=== PATIENT | female | born 1955 | race Caucasian/White ===

== ENCOUNTER → 2020-02-19 11:27 | Outpatient (CLI) | payer OTHER, SELFPAY ==
--- NOTE | ~2020-02-19 | XR_ITS ---
XR chest 2V 02/19/2020 12:05 Indication: Shortness of breath. Intermittent cough. Procedure: 2 view chest Comparison: 04/06/2006 Findings: Heart size normal. No focal air space disease, pulmonary edema, pleural effusion or suspect ed pneumothorax. Calcified granuloma right apex. The lungs are hyperinflated which is consistent with , but not diagnostic of chronic obstructive pulmonary disease. There is a nodular density at the righ t apex. Impression: 1: Nodular density right apex. Follow-up CT chest recommended to exclude parenchymal nodule. Reviewed, dictated and finalized at location A. Impression: 1: Nodular density right apex. Follow-up CT chest recommended to exclude parenc hymal nodule.
== END ==
PROVIDERS: PCP Family Medicine; Visit Provider Family Medicine
DX: R06.02 Shortness of breath (principal); R91.8 Other nonspecific abnormal finding of lung field
CPT/HCPCS: 71046

== ENCOUNTER 2020-03-03 14:39 | Outpatient (CLI) | payer OTHER, SELFPAY ==
--- NOTE | ~2020-03-03 | MM_ITS ---
EXAMINATION: MM screening aamir BI w roslyn HISTORY: Screening TECHNIQUE: Craniocaudal and mediolateral oblique 3-D tomosynthesis images were obtained and synthetic 2-D images were generated. CAD analysis was submitted and interpreted. COMPARISON: Comparison to multiple prior studies sequentially, with oldest reviewed study dated 05/2013. BREAST PARENCHYMAL COMPOSITION: There are scattered areas of fibroglandular density. FINDINGS: There is no evidence of suspicious mass, calcification, or architectural distortion to sugg est malignancy in either breast. There has been no suspicious interval change. IMPRESSION: 1. No mammographic evidence of malignancy. 2. Recommend routine screening mammography in one year. BI-RADS Category 1: Negative Reviewed, dictated and finalized at location A.
== END 2020-03-03 14:40 | disposition home or self-care (01) ==
LOC: ANHIMG 14:41
PROVIDERS: PCP Family Medicine; Visit Provider Obstetrics & Gynecology
DX: Z12.31 Encounter for screening mammogram for malignant neoplasm of breast (principal)
CPT/HCPCS: 77063; 77067

== ENCOUNTER → 2020-03-05 15:54 | Outpatient (CLI) | payer OTHER, SELFPAY ==
--- NOTE | ~2020-03-05 | CT_ITS ---
EXAMINATION: CT chest wo con EXAM DATE: 03/05/2020 16:08 INDICATION: Solitary pulmonary nodule. Shortness of breath, cough. TECHNIQUE: Spiral CT of the chest without contrast. Axial, coronal and sagittal images were reviewe d. Coronal maximum intensity pixel images of chest reviewed. The dose-length product (DLP) for this examination was 141.86 mGy-cm. The exposure was tailored according to patient size (auto mA exposur e control), and iterative reconstruction (ASIR) was used as additional dose reduction technique. The re is no prior study for comparison. FINDINGS: Small left-sided Bochdalek hernia. Chest x-ray finding correlates to several right upper l obe opacities with calcification, granulomas, postinfectious residua. Small amount of apical postinfe ctious residua. No suspicious opacities. There are no pleural or pericardial effusions. Tracheobron chial tree is patent. There is no mediastinal, hilar or axillary lymphadenopathy. There is no pne umothorax. Heart normal in size. No evidence of coronary arterial calcification. Upper abdomen i s unremarkable. There is mild thoracic spondylosis without osteoblastic or osteolytic lesions ident ified. IMPRESSION: Apical, right upper lobe post infectious residua. No suspicious findings. Reviewed, dictated and finalized at location B. IMPRESSION: Apical, right upper lobe post infectious residua. No suspicious fin dings.
== END ==
PROVIDERS: Visit Provider Family Medicine
DX: R91.1 Solitary pulmonary nodule (principal)
CPT/HCPCS: 71250

== ENCOUNTER → 2020-08-07 11:54 | Outpatient (CLI) | payer OTHER, SELFPAY ==
[2020-08-07 14:09] LABS: Influenza Control Positive
[2020-08-08 18:59] LABS: SARS-CoV-2 RNA PCR Negative
== END ==
PROVIDERS: PCP Family Medicine; Visit Provider Physician Assistant
DX: Z20.822 Contact with and (suspected) exposure to COVID-19 (principal); R05 Cough
CPT/HCPCS: 87804; C9803; U0003; U0005

== ENCOUNTER → 2020-09-01 00:14 | Outpatient (CLI) | payer OTHER, SELFPAY ==
[2020-09-01 19:29] LABS: SARS-CoV-2 RNA PCR Negative
== END ==
PROVIDERS: PCP Family Medicine; Visit Provider Internal Medicine Gastroenterology
DX: Z01.812 Encounter for preprocedural laboratory examination (principal); Z20.822 Contact with and (suspected) exposure to COVID-19
CPT/HCPCS: C9803; U0003; U0005

== ENCOUNTER 2020-09-04 00:44 | Day surgery (SDC) | payer OTHER, SELFPAY ==
[2020-08-20 15:08] VITALS: BMI 27.9
[2020-09-04 10:57] VITALS: BP 141/97; PULSE 74; RESP 16; TEMP 37.1; O2SAT 100; BMI 26.3
[2020-09-04] MEDS: LACTATED RINGERS 1,000 ML 150 ML IV CONT (11:06)
--- NOTE | 2020-09-04 11:19 | WPDANESEPPF ---
Anes - Initial Pre Proc Eval Procedure: Operation Date: 09/04/20 12:00 Proposed Procedures p Screening Colonoscopy - Silvio Burnette DO Date/Time: 09/04/20 11:19 Surgeon: Silvio Burnette DO Pre Op Diagnosis: neoplasm screening Patient Data Age: 65 Gender: F Height: 5 ft 7 in Weight: 76.2 kg Last Vital Signs Temp 98.7 F 09/04/20 10:57 Pulse 74 09/04/20 10:57 Resp 16 09/04/20 10:57 BP 141/97 H 09/04/20 10:57 Pulse Ox 100 09/04/20 10:57 Allergies Allergy/AdvReac Type Severity Reaction Status Date / Time No Known Allergies Allergy Mild Verified 09/04/20 10:56 Home Medications Medication Instructions Recorded Confirmed Type albuterol sulfate 90 mcg/actuation 1 inhalation INHALATION Q4H PRN #1 02/19/20 08/20/20 Rx aerosol inhaler device calcium carbonate-vit D3-min 1,200 mcg PO DAILY 08/20/20 08/20/20 History montelukast [Singulair] 10 mg PO DAILY PRN 08/20/20 08/20/20 History Patient hx anesthesia problems: none Family hx anesthesia problems: none PMFSH Past Medical History Medical History (Updated 08/07/20 @ 09:10 by Slime Rodriguez PA-C) Allergic rhinitis Cough Family History Family History Other Diabetes mellitus Family history of emphysema Family history of malignant neoplasm of breast in first degree relative Family history of malignant neoplasm of uterus Social History Social History Smoking status: Former smoker Second hand tobacco smoke exposure: No Smoking end date: 06/30/92 Alcohol intake: never Alcohol use details: rarely Living arrangements: with family Gender identity (if verbalized by the patient): Female Spiritual care concerns: No Anes - Eval Final PreProcedure Day of Procedure 09/04/20 11:19 Patient weight: normal Heart: regular rate and rhythm Lungs: clear to auscultation Airway: Mallampati scale class II Neurological: alert and oriented Last oral intake: >/= 8 hours ASA classification: II Emergent: no Anesthetic plan: proceed Anesthesia type and monitoring: general GIVS and standard monitoring Informed Consent: The patient's anesthetic plan and its attendant risks and benefits were discussed with the patient/family/POA. Questions were solicited and answers provided to the satisfaction of the patient/family/POA.
--- NOTE | 2020-09-04 11:41 | WPDGICN ---
GI Consult Note Consult date/time: 09/04/20 11:41 HPI: Reason for visit is colonoscopy. This very pleasant lady seen in consultation request of the primary physician. Impression: Screening colonoscopy. The patient has a history adenomatous colon polyps and a family history of colorectal cancer. Recommendation: Colonoscopy. History: This very pleasant lady's here for screening and surveillance colonoscopy. She has a history adenomatous colon polyps. She has a family history colorectal cancer. Her GI review systems negative. Physical examination: General: very pleasant patient in no acute distress. HEENT: Head was normocephalic sclerae is clear mouth without masses neck was supple. Heart: Rate rhythm regular without S3 or S4. Lungs: CTA. Abdomen: Soft with no guarding or rigidity. Bowel sounds were active. Neurologic: Cranial nerves 2 through 12 intact. No focal defects. No clonus. Musculoskeletal system: Revealed no joint tenderness or swelling no muscle atrophy. Extremities: Reveal no significant edema. Skin: Warm and dry with normal turgor. Mental status: intact. Patient is alert and oriented. Review of Systems Review of Systems: All systems reviewed & are unremarkable except as noted in HPI and below [facility] Past Medical History Medical History (Updated 08/07/20 @ 09:10 by Slime Rodriguez PA-C) Allergic rhinitis Cough Family History Family History Other Diabetes mellitus Family history of emphysema Family history of malignant neoplasm of breast in first degree relative Family history of malignant neoplasm of uterus Social History Social History Smoking status: Former smoker Second hand tobacco smoke exposure: No Smoking end date: 06/30/92 Alcohol intake: never Alcohol use details: rarely Living arrangements: with family Gender identity (if verbalized by the patient): Female Spiritual care concerns: No Meds Home Medications and Allergies Home Medications Medication Instructions Recorded Confirmed Type albuterol sulfate 90 mcg/actuation 1 inhalation INHALATION Q4H PRN #1 02/19/20 08/20/20 Rx aerosol inhaler device calcium carbonate-vit D3-min 1,200 mcg PO DAILY 08/20/20 08/20/20 History montelukast [Singulair] 10 mg PO DAILY PRN 08/20/20 08/20/20 History Allergies Allergy/AdvReac Type Severity Reaction Status Date / Time No Known Allergies Allergy Mild Verified 09/04/20 10:56 Vital Signs Vital Signs - 24 hr 09/04/20 10:57 Temperature 37.1 C Pulse Rate 74 Respiratory Rate 16 Blood Pressure 141/97 H Pulse Oximetry 100
[2020-09-04 12:15] VITALS: BP 106/73; PULSE 68; RESP 23; O2SAT 98
[2020-09-04 12:25] VITALS: BP 108/71; PULSE 63; RESP 18; O2SAT 98
[2020-09-04 12:35] VITALS: BP 124/84; PULSE 55; RESP 17; O2SAT 97
== END 2020-09-04 13:07 | disposition home or self-care (01) ==
PROVIDERS: PCP Family Medicine; Visit Provider Internal Medicine Gastroenterology
PROC: 0DJD8ZZ Inspection of Lower Intestinal Tract, Via Natural or Artificial Opening Endoscopic (ICD-10-PCS; CPT 45378; principal; 2020-09-04 12:00)
DX: Z12.11 Encounter for screening for malignant neoplasm of colon (principal); D12.8 Benign neoplasm of rectum; K57.30 Diverticulosis of large intestine without perforation or abscess without bleeding; K64.8 Other hemorrhoids; Z80.0 Family history of malignant neoplasm of digestive organs; Z87.891 Personal history of nicotine dependence; Z79.51 Long term (current) use of inhaled steroids
CPT/HCPCS: 45380; 88305; C9803; J2704; J7120; U0003; U0005

== ENCOUNTER → 2021-01-20 10:55 | Outpatient (CLI) | payer OTHER, SELFPAY ==
--- NOTE | ~2021-01-20 | CT_ITS ---
EXAMINATION: CTA chest PE protocol DATE: 01/20/2021 11:26 INDICATION: Pleurodynia. Dyspnea. TECHNIQUE: Computed tomography angiography (CTA) of the chest was performed with 100 mL Omnipaque-350 intravenous contrast timed to evaluate the pulmonary arteries. Coronal maximum intensity projection 3D-reconstructions were created by the technologist. Automated exposure control and iterative reconst ruction technique were employed. The dose-length product was 320.92 mGy-cm. COMPARISON: Chest CT 03/05/2020 FINDINGS: There is mild scarring at the lung apices. There is mild atelectasis bilaterally. A calcifi ed right lung nodule and calcified right hilar lymph nodes are consistent with old granulomatous dise ase. No pleural effusion. The heart size is normal. No pericardial effusion. There is no pulmonary em bolus. There is moderate thoracic spondylosis. There is mild chronic anterior wedging of multiple may tebral bodies. IMPRESSION: 1. No pulmonary embolus. Reviewed, dictated and finalized at location A. IMPRESSION: 1. No pulmonary embolus.
[2021-01-20 11:14] LABS: Estimated Glomerular Filt Rate > 60
== END ==
PROVIDERS: PCP Family Medicine; Visit Provider Family Medicine
DX: R06.00 Dyspnea, unspecified (principal); R07.81 Pleurodynia
CPT/HCPCS: 71275; Q9967

== ENCOUNTER 2021-03-17 07:34 | Outpatient (CLI) | payer OTHER, SELFPAY ==
--- NOTE | ~2021-03-17 | MM_ITS ---
EXAMINATION: MM screening aamir BI w roslyn HISTORY: Screening mammogram TECHNIQUE: Craniocaudal and mediolateral oblique 3-D tomosynthesis images were obtained and synthetic 2-D images were generated. CAD analysis was submitted and interpreted. COMPARISON: No prior mammogram is available for comparison at this institution. BREAST PARENCHYMAL COMPOSITION: There are scattered areas of fibroglandular density. FINDINGS: There is stable mild fibroglandular asymmetry. There is no evidence of suspicious mass, rex cification, or architectural distortion to suggest malignancy in either breast. There has been no juve picious interval change. IMPRESSION: 1. No mammographic evidence of malignancy. 2. Recommend routine screening mammography in one year. BI-RADS Category 2: Benign finding(s). Reviewed, dictated and finalized at location A.
== END 2021-03-17 07:35 | disposition home or self-care (01) ==
LOC: ANHIMG 07:35
PROVIDERS: PCP Family Medicine; Visit Provider Obstetrics & Gynecology
DX: Z12.31 Encounter for screening mammogram for malignant neoplasm of breast (principal)
CPT/HCPCS: 77063; 77067

== ENCOUNTER → 2021-07-07 02:09 | Outpatient (CLI) | payer OTHER, SELFPAY ==
[2021-07-07 12:12] LABS: Influenza A QL RT-PCR Negative (Negative); Influenza B QL RT-PCR Negative (Negative); SARS-CoV-2 RNA PCR Negative
== END ==
PROVIDERS: PCP Family Medicine; Visit Provider Family Medicine
DX: R50.9 Fever, unspecified (principal); Z20.822 Contact with and (suspected) exposure to COVID-19
CPT/HCPCS: 87502; C9803; U0003; U0005

== ENCOUNTER 2021-08-19 10:01 | Emergency (ER) | payer OTHER, SELFPAY ==
--- NOTE | 2021-08-19 10:05 | ED.URI ---
HPI - URI/Sore Throat General Chief Complaint: Upper Respiratory Infection Stated Complaint: SINUS CONGESTION Time Seen by Provider: 08/19/21 10:05 Source: patient Mode of arrival: ambulatory Limitations: no limitations History of Present Illness HPI Narrative: Ms. Marin is a 66-year-old female patient presenting to the clinic today with complaints of sinus congestion for 4 days. She reports she has sinus pain and pressure along with green nasal discharge. She denies any fever or chills. Had Covid test completed on Tuesday and it was negative at that time. She denies any exposure to anyone with Covid or influenza. She works at a [employer] and states that she is unable to go back to work until she is symptom-free MD elicited complaint: nasal congestion and sinus pain Related Data Home Medications Medication Instructions Recorded Confirmed [id number] ac 400 tablet PO 01/13/21 07/08/21 mcg-calcium carb 500 mg-vit K1 20 mcg tablet Allergies Allergy/AdvReac Type Severity Reaction Status Date / Time No Known Allergies Allergy Mild Verified 07/08/21 14:36 Review of Systems Review of Systems: Pertinent positives per HPI. Patient denies any fever, chills, rash, headache, visual changes, dizziness, cough, sore throat, shortness of breath, chest pain, palpitations, nausea, vomiting, diarrhea, constipation, abdominal pain, or any urinary issues. [facility] Past Medical History Medical History Allergic rhinitis Cough Essential hypertension Surgical History Surgical History Hx of cataract surgery Bilateral lens implant Family History Family History Other Diabetes mellitus Family history of emphysema Family history of malignant neoplasm of breast in first degree relative Family history of malignant neoplasm of uterus Social History Social History Second hand tobacco smoke exposure: No Smoking end date: 06/30/92 Alcohol intake: never Alcohol use details: rarely Gender identity (if verbalized by the patient): Female Spiritual care concerns: No Comments At the time of my signature, I reviewed and agree with the nursing past medical, surgical, social, and family history. There is no relevant family history pertinent to the patient complaint. Exam Narrative: General: Well-developed, well nourished, in no apparent distress Head: Normocephalic, atraumatic Eyes: Pupils equally round and reactive to light bilaterally, EOM intact, sclera and conjunctive clear, no discharge, lids normal Ears: TMs intact and dull ear canals clear, no drainage, grossly hearing normal. Nose: Nares patent, clear discharge moderate inflammation to anterior and posterior turbinates, sinus tenderness over the maxillary sinuses. Mouth: Oral pharynx without lesions or masses, good dentition, MMM. Postnasal drip Neck: Supple, trachea midline, no enlargement of anterior or posterior cervical nodes, no thyroid masses or goiter palpable. Cardio: Regular rate and rhythm, s1 and s2 normal, no murmur appreciated. Resp: Clear to auscultation bilaterally, no rhonchi, rales, wheezing or rubs Course Course Emergency Course: Portions of this record may have been created with voice recognition software. Level of Care: Express Care Visit Vital Signs Vital signs: Vital signs reviewed MDM - URI/Sore Throat MDM Narrative Medical decision making narrative: At the time of visit patient is resting comfortably on the exam table. She is having sinus pressure and congestion x4 days with green nasal drainage at times. Has been taking Flonase and Zyrtec without relief. History of allergic rhinitis in the past. Denies any fever chills. Has maxillary sinus tenderness with swelling of the
[2021-08-19 10:08] VITALS: BP 168/96; PULSE 82; RESP 16; TEMP 37; O2SAT 100
== END 2021-08-19 10:26 | disposition home or self-care (01) ==
PROVIDERS: Emergency Provider Nurse Practitioner Family; PCP Family Medicine
DX: J01.90 Acute sinusitis, unspecified (principal); I10 Essential (primary) hypertension
CPT/HCPCS: 99213; G0463

== ENCOUNTER 2021-11-23 07:43 | Outpatient (CLI) | payer OTHER, MEDICARE, SELFPAY | END 2021-11-23 07:44 | disposition home or self-care (01) | LOC: ANHAUDASC 07:59 | PROVIDERS: PCP Family Medicine; Visit Provider Otolaryngology | DX: H72.10 Attic perforation of tympanic membrane, unspecified ear (principal); H69.83 Other specified disorders of Eustachian tube, bilateral; H90.0 Conductive hearing loss, bilateral | CPT/HCPCS: 92557; 92567 ==

== ENCOUNTER 2022-05-20 09:02 | Outpatient (CLI) | payer MEDICARE, OTHER, MEDICAID, SELFPAY ==
--- NOTE | ~2022-05-20 | MM_ITS ---
EXAMINATION: MM screening aamir BI w roslyn HISTORY: Screening TECHNIQUE: Craniocaudal and mediolateral oblique 3-D tomosynthesis images were obtained and synthetic 2-D images were generated. CAD analysis was submitted and interpreted. COMPARISON: Comparison to multiple prior studies sequentially, with oldest reviewed study dated 10/15. BREAST PARENCHYMAL COMPOSITION: There are scattered areas of fibroglandular density. FINDINGS: There is no evidence of suspicious mass, calcification, or architectural distortion to sugg est malignancy in either breast. There has been no suspicious interval change. IMPRESSION: 1. No mammographic evidence of malignancy. 2. Recommend routine screening mammography in one year. BI-RADS Category 1: Negative Reviewed, dictated and finalized at location A. 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
== END 2022-05-20 09:03 | disposition home or self-care (01) ==
PROVIDERS: PCP Family Medicine; Visit Provider Obstetrics & Gynecology
DX: Z12.31 Encounter for screening mammogram for malignant neoplasm of breast (principal)
CPT/HCPCS: 77063; 77067